=== PATIENT | female | born 1955 | race Caucasian/White ===

== ENCOUNTER 2019-07-20 14:04 | Inpatient (IN) | payer OTHER ==
[~2019-07-20] VITALS: Ht 170.2 cm; Wt 87.5 kg
[2019-07-20 14:18] VITALS: BP 151/78
[2019-07-20] MEDS ORDERED: OMEPRAZOLE 20 M20 M1 PO ×2 (15:00→15:03)
[2019-07-20] MEDS ORDERED: VISTARIL 25 MG25 M1 PO (15:02)
[2019-07-20] MEDS ORDERED: NAMENDA 10 MG T10 MG PO (15:02)
[2019-07-20] MEDS ORDERED: MEMANTINE HCL10 MG PO (15:04)
[2019-07-20] MEDS ORDERED: CHILDREN'S ALLER5 M1 PO (15:04)
[2019-07-20] MEDS ORDERED: NABUMETONE 500500 M1 PO (15:06)
[2019-07-20] MEDS ORDERED: MULTIVITAMINS1 EAC7 PO (15:07)
[2019-07-20] MEDS ORDERED: DESYREL150 MG PO (15:07)
[2019-07-20] MEDS ORDERED: VENLAFAXINE HC225 MG PO (15:07)
[2019-07-20] MEDS ORDERED: FLONASE 0.05%50 MCG NASAL (15:08)
[2019-07-20] MEDS ORDERED: FLONASE 0.05%50 MCG NARES (15:08)
[2019-07-20] MEDS ORDERED: PROAIR HFA8.5 GM INH (15:08)
[2019-07-20] MEDS ORDERED: VOLTAREN GEL 1100 G1 TOP (15:09)
[2019-07-20] MEDS ORDERED: NORVASC5 M1 PO (15:09)
[2019-07-20] MEDS ORDERED: CLONAZEPAM 0.50.5 M1 PO (15:10)
[2019-07-20 15:16] LABS: URINE BILIRUBIN NEGATIVE (Negative); URINE BLOOD NEGATIVE (Negative); URINE CLARITY CLEAR; URINE COLOR YELLOW; URINE GLUCOSE-RANDOM* NEGATIVE (Negative); URINE KETONES NEGATIVE (Negative); URINE LEUKOCYTES-REFLEX NEGATIVE (Negative); URINE NITRITE-REFLEX NEGATIVE (Negative); URINE PROTEIN (DIPSTICK) NEGATIVE (Negative); URINE SPECIFIC GRAVITY <= 1.005 (1.005-1.035); URINE UROBILINOGEN 0.2 E.U./dl (0.2-1.0)
[2019-07-20 15:18] LABS: ABSOLUTE NEUTROPHILS 2.9 thou/uL (1.4-8.2); BASOPHILS 0.1 % (0.0-2.0); HEMATOCRIT 42.1 % (37.0-47.0); HEMOGLOBIN 14.1 gm/dL (12.0-15.0); LYMPHOCYTES 27.5 % (24.0-44.0); MCH 30.8 pg (26.0-34.0); MCHC 33.5 g/dL (28.0-37.0); MCV 91.9 fL (80.0-100.0); MONOCYTES 9.4 % (1.0-8.0); PLATELET COUNT 253 thou/uL (150-400); RBC 4.58 mil/uL (4.20-5.00); RDW 13.1 % (10.5-14.5); WBC 4.6 thou/uL (4.0-11.0)
[2019-07-20 15:25] LABS: CALCIUM 9.3 mg/dL (8.5-10.1); CREATININE 0.8 mg/dL (0.6-1.0); POTASSIUM 3.7 mmol/L (3.5-5.1)
[2019-07-20 15:31] LABS: ALBUMIN 4.2 g/dL (3.4-5.0); TOTAL BILIRUBIN 0.3 mg/dL (<0.1-1.0)
[2019-07-20 17:28] VITALS: BP 138/92
[2019-07-20 18:04] VITALS: BP 148/75
--- NOTE | 2019-07-20 18:39 | NUR ---
PT. ARRIVED IN W/C FROM ER. PT. HERE FOR CONFUSION WITH DEMENTIA, INCREASED AGRESSION AND ANGER OVER THE PAST FEW WEEKS. SHE IS ORIENTED TIMES 4 AND WAS BROUGHT IN BY HER DAUGHTER IN LAW. SHE HAS BEEN VERY TEARFUL SINCE SHE HAS BEEN HERE STATING HER FAMILY IS MAKING HER LOOK BAD. SHE STATES SHE HAS BEEN GAINING WEIGHT OVER THE PAST FEW MONTHS AND HAS BEEN TRYING TO EAT LESS SO SHE COULD LOSE WEIGHT. SHE HAS A PMHX OF HTN, ANXIETY/DEPRESSION/INSOMNIA, ALLERGIES, CHRONIC JOINT PAIN, VERTIGO, RECURRENT PNEUMONIA, AND CHRONIC SINUSITIS. SHE HAS HAD A PAST HISTORY OF RT. CARPAL TUNNEL RELEASE 12/2007, HYSTERECTOMY 2008, RT. KNEE ARTHROSCOPY 2009, ROTATOR CUFF REPAIR, LEFT KNEE REPLACEMENT, LEFT KNEE MANIPULATION 2016, AND VENTRICULAR PERITONEAL SHUNT REPLACEMENT 2019. VITALS WERE STABLE. HER DAUGHTER IN LAW AND SON ARE HER DPOA. SHE DID STATE AT ONE POINT SHE HEARS VOICES AND SEES THINGS, BUT WHEN ASKED ABOUT THIS AGAIN, SHE DENIED IT.
[2019-07-20 20:30] VITALS: BP 156/93
[2019-07-20 20:40] VITALS: BP 156/93
--- NOTE | 2019-07-21 02:43 | NUR ---
PATIENT WAS GIVEN A BOXED LUNCH THIS EVENING AFTER COMING UP FROM ED. SHE ATE 100%. SHE HAS BEEN ASKING TO CALL AND TALK WITH HER SON WHO IS DPOA. I TOLD HER I NEEDED TO CALL HIM FOR SOME CONSENTS AND WOULD SEE IF HE WAS AVAILABLE TO TALK. WHEN I CALLED HE STATES THAT HE HAD JUST TALKED TO HER BY PHONE NOT TOO LONG AGO. PATIENT WAS BEING SEEN BY JASWANT ROBERTSON NP AT THE TIME. PATIENT CAME OUT AFTER SEEING FUNDS DEVELOPMENT DIRECTOR AND ASKED TO CALL. TOLD HER I HAD SPOKEN TO SON AND HE STATES HE HAD SPOKEN TO HER NOT TOO LONG BEFORE THAT AND WE COULD TRY THE NEXT DAY. SHE BECAME TEARY EYED AND SAID SHE JUST WANTED TO KNOW WHY SHE IS HERE. PT WENT BACK TO ROOM AND THIS NURSE WENT TO DO ASSESSMENT AND DISCUSS WITH HER WHY SHE WAS HERE. SHE ACCEPTED WHY SHE WAS HERE AND IS WILLING TO LET DR TRY AND FIND A WAY TO FIX HER MEDS SO SHE IS NOT SO ANGRY ALL THE TIME. SHE STAYED CALM AND DID NOT CRY. SHE SMILED AND THANKED ME FOR SPENDING TIME WITH HER. WELCOME PACKET GIVEN TO HER. PATIENT BROUGHT HER OWN DEPENDS IN AND WANTS TO USE THEM UNTIL THEY ARE GONE. PATIENT HAS BEEN SLEEPING SINCE 2229. BED IN LOW POSITION. CONTINUING TO MONITOR FOR ASSESSMENT OF STATUS AND SAFETY. IPAD AND CELLPHONE SENT TO SECURITY FOR SAFE KEEPING. PATIENT TOOK HER MEDS WHOLE WITHOUT ISSUE. PT STATES SHE HAD BM 07/19/19. WILL CONTINUE TO MONITOR.
--- NOTE | 2019-07-21 06:22 | NUR ---
PATIENT AWOKE THIS MORNING AND IS SITTING IN MAIN DINING ROOM. SHE HAS C/O OF HEADACHE AT A 5 OUT OF 10. WHEN I ASK HOW SHE IS FEELING THIS MORNING SHE CRIES SOFTLY AND SAYS SHE WANTS TO GO HOME AND SHE DOESN'T BELONG HERE. I LISTENED AND TRIED TO CONSOLE AND ENCOURAGE HER TO TALK TO THE DR AND LET HIM KNOW HER STORY AND WORK WITH THE TEAM THEY LOOK AT HER MEDS AND SEE WHERE THEY NEED TO BE ADJUSTED AT. TOLD HER TO TAKE ADVANTAGE OF THE GROUP SESSIONS AND THAT WE CAN ALL LEARN SOMETHING FROM THEM. PATIENT GIVEN TYLENOL 650MG PO AT 0615 FOR HEADACHE. PATIENT SITTING AT A TABLE WATCHING TV AT THIS TIME. PT WAS GIVEN NEW SOCKS WITH TREADS ON THEM TO WEAR AROUND UNIT. FALL TEACHING DONE WITH PATIENT EXPLAINING THE REASON SHE NEEDED TO TRADE OUT HER SOCKS FOR THESE. WILL CONTINUE TO MONITOR.
[2019-07-21 07:26] VITALS: BP 133/94
--- NOTE | 2019-07-21 11:32 | EKG ---
[facility] [place] [address] ELECTROCARDIOGRAM REPORT Name: KAYKAYGALLITO Room #: [facility] ADM IN M.R.#: [id number] Admission: 07/20/19 Attend Phys: Alexander Champagne DO Discharge: Date of : 57 Report #: [id number] THIS REPORT FOR: cc: FAM - Family physician unknown FAM - Family physician unknown Chadd Rashid MD ~ THIS REPORT FOR: //name// [facility] ED Test Date: 2019-07-20 Test Time: 16:00:02 Pat Name: GALLITO MCCRACKEN Department: Room: [facility] Gender: F Car Rental Manager: BRENDA : [id number] Requested By: Sixto Childers Order Number: [id number] MD: Chadd Rashid Measurements Intervals [place] Rate: 71 P: 52 NV: 159 QRS: 20 QRSD: 94 T: 17 QT: 380 QTc: 413 Interpretive Statements Sinus rhythm Probable left atrial enlargement Baseline wander in lead(s) V1 No previous ECG available for comparison Electronically Signed On 07-21-2019 11:31:15 CDT by Chadd Rashid [email or web address] <ELECTRONICALLY SIGNED> By: Chadd Rashid MD 07/21/19 1131 1600 1600 Chadd Rashid MD /EPI
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
[2019-07-21 19:56] VITALS: BP 126/87
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
--- NOTE | 2019-07-22 02:04 | NUR ---
PATIENT WAS UP IN DAYROOM WATCHING TV WHEN THIS NURSE CAME ON DUTY. PATIENT HAS BEEN CALM AND COOPERATIVE AND VERY PLEASANT. SHE HAS NOT BEEN TEARY THIS EVENING. WHEN I OFFERED HER A PRN ANTIANXIETY MED AT HS SHE REFUSED IT SAYING SHE FELT FINE AND DIDN'T FEEL SHE NEEDED IT. WE DISCUSSED HER DAY TODAY. SHE STATES SHE FELT BETTER TALKING WITH THE DOCTOR BUT HOPES SHE CAN GET HOME SOON. SHE HAS CONSULTS WITH OT AND CONSULT WITH DR WISDOM FOR THIS WEEK. SHE DENIES PAIN. SHE IS FORGETFUL. SHE TOLD DAY NURSE THAT SHE NEEDED A LAXATIVE BECAUSE SHE HADN'T HAD A BM IN SEVERAL DAYS AFTER TELLING ME THAT SHE HAD A BM ON 07/19/19. PATIENT HAS ACTIVE BOWEL SOUNDS AND HER ABDOMEN IS SOFT. SUGGESTED PRUNE JUICE IN THE MORNING FOR BREAKFAST. PATIENT HAS BEEN APPROPRIATE AND SMILING MORE WHEN TALKING THIS EVENING. SHE TOOK HER MEDS WHOLE WITH WATER. SHE DID HAVE AN HS SNACK. VSS. HEART REGULAR AND BILATERAL LUNGS CTA. A/0X3. DENIES SI/HI/AVH. BED IN LOW POSITON AND ROUNTINE ROUNDS TO ASSESS FOR SAFETY AND STATUS. PATIENT APPEARS COMFORTABLE AND IS SLEEPING AT THIS TIME. WILL CONTINUE TO MONITOR.
[2019-07-22 07:46] VITALS: BP 112/61
[2019-07-22 11:56] VITALS: BP 112/61
--- NOTE | 2019-07-22 12:03 | NUR ---
LITURGICAL MUSIC DIRECTOR met with this patient and another patient for a small non contact reminiscent group. Patient shared stories from camping trips she has taken. She becomes tearful at times when she speaks about her cat and dog and wanting to return home. Some hopelessness when she expresses limitations such as no longer driving.
[2019-07-22 19:30] VITALS: BP 147/88
--- NOTE | 2019-07-23 03:08 | NUR ---
PATIENT ASSESSED AND IS ALERT X 4. SKIN WARM AND DRY. RESP EVEN AND UNLABORED. UP WALKING INDEPENDENTLY. TAKEN ALL MEDS WELL. IS STEADY ON HER FEET. HAS BEEN ROOM SERVICE FOOD SERVER[PERATIVE THIS SHIFT SO FAR. NO SI/HI/AH/VH. NOTED. NO DELUSIONAL BEHAVIOR NOTED. VISTERIL GIVEN ALONG HER HS MEDS. " STOMACH ALITTLE CRAMPY" STATED BY PATIENT. HAD A LARGE BM TODAY. TO BED AND HAS BEEN SLEEPING EVER SINCE. VS STABLE. HAS BEEN PLESANT THIS SHIFT SO FAR. DENIES ANY PAIN. CONT PLAN OF CARE. LUNGS CTA. VOIDING WELL.
[2019-07-23 08:44] VITALS: BP 143/84
--- NOTE | 2019-07-23 12:57 | NUR ---
MARCELINO contacted Neena and provided an update on pt including that a neuropsych test has been ordered. Neena was in agreement with that plan. SW Team will continue to follow pt during her stay on this unit.
--- NOTE | 2019-07-23 18:03 | NUR ---
UAL IN HALLS AND DINNING ROOM, STEADY GAIT. VISITS WITH OTHER PATIENTS WITHOUT ANY SIGNS OF AGGRESSION OR AGITATION. AAOX4. GOOD APPETITE FOR MEALS. TOOK TYLENOL THIS SHIFT FOR C/O HEADACHE, GOOD RELIEF. NEUROPSYCH TESTED COMPLETED PER DR. WISDOM.
[2019-07-23 19:27] VITALS: BP 138/78
[2019-07-23 21:22] VITALS: BP 138/78
--- NOTE | 2019-07-24 04:20 | NUR ---
PATIENT UP IN THE DINING ROOM TONIGHT UNTIL BEDTIME. PATIENT WAS CALM AND COOPERATIVE. SHE DID BECOME ANXIOUS AT BEDTIME THINKING THAT SHE WOULDN'T BE ABLE TO SLEEP. PATIENT GIVEN HER HS TRAZADONE AND THEN A LITTLE LATER SHE WAS GIVEN HYDROXZINE 25MG PRN D/T UNABLE TO SLEEP AND WAS WORRYING ABOUT IT. PATIENT HAS BEEN SLEEPING SOUNDLY SINCE. PATIENT DID HAVE A BM TONIGHT BEFORE SHE WENT TO BED. PATIENT DENIES PAIN. DENIES SI/HI/AVH. PATIENT STATES SHE HOPES TO GO HOME BY SUNDAY. SHE TOOK HER HS MEDS WHOLE WITH WATER. VSS. BED IN LOW POSITION. ROUTINE ROUNDS TO ASSESS FOR STATUS AND SAFETY OF PATIENT. CONTINUING TO MONITOR. PHARMACIST CALLED FROM LAB AND STATES THAT SHE IS CHANGING PATIENT'S OMEPRAZOLE OVER TO PANTROPAZOLE. CONTINUING TO MONITOR.
[2019-07-24 09:08] VITALS: BP 152/82
[2019-07-24 09:18] VITALS: BP 152/97
--- NOTE | 2019-07-24 10:14 | NUR ---
1010 RESUMMED CARE FROM OVERNIGHT SHIFT THIS AM, PATIENT IN DAY ROOM WAITING FOR BREAKFAST. PATIENT STATED TO ME THIS AM THAT SHE SHOULD NOT BE HERE, HER CAREGIVER PUT HERE FOR A MISUNDERSTANDING. PATIENTS ABDOMEN SOFT ROUND BOWEL SOUNDS PRESENT LUNGS CLEAR. PATIENT VERY PLEASAT BUT WANTS TO LEAVE HERE, PATIENT DENIES SI/HI/AH/VH AT PRESENT. PATIENTS GOAL IS TO BE COOPERATIVE SO SHE CAN GO HOME. WILL CONTINUE TO MONITOR PATIENT FOR BEHAVIORS AND SAFETY.
[2019-07-24 21:16] VITALS: BP 152/85
--- NOTE | 2019-07-25 02:19 | NUR ---
ASSSUMED CARE OF PT AT 1900HRS. PT WAS CALM AND COOPERATIVE THIS SHIFT. ASSESSMENT CHARTED. 2+ BLE EDEMA NOTED AND PT REPORTS THAT IT IS NORMAL FOR HER. PT DENIED PAIN, NAUSEA, SI/HI/AH/VH. PT WAS ABLE TAKE HS MEDS WHOLE WITH WATER. PT WAS ABLE TO SLEEP PART OF THE SHIFT. VSS AND NO S/S OF ACUTE DISTRESS. WILL CONTINUE TO MONITOR.
[2019-07-25 08:05] VITALS: BP 125/95
--- NOTE | 2019-07-25 10:00 | NUR ---
0700 ASSUMED CARE OF PATIENT, PATIENT SITTING IN CHAIR IN DAYROOM. DENIED NEEDS AT THAT TIME. PATIENT UPSET WHEN STAFF ASKED HER NOT TO GET INTO REFRIGERATOR THIS AM. PATIENT EATING BREAKFAST IN DAYROOM. MEDICATION TAKEN WHOLE WITHOUT DIFFICULTY. WILL CONTINUE TO OBSERVE
--- NOTE | 2019-07-25 11:56 | NUR ---
RT progress note- Lorena is actively participating in 1;1 and small groups at this time. She is ocassionally tearful d/t situation, but is pleasant and socially interactive. She has participated in putting a puzzle together over the last few days and especially enjoys music.
--- NOTE | 2019-07-25 15:46 | NUR ---
MARCELINO provided the results of the neuropsych report to Neena; pt needs 24 hour support and supervision. She said she would prefer pt to come to her home with staffing, but she does not think that will happen. She sent MARCELINO a list of providers she would like referrals sent to . MARCELINO sent referrals to Laurent Huynh, Abdiel ESPINO, and Rohit. MARCELINO team will continue to follow pt during his stay on this unit.
[2019-07-25 19:40] VITALS: BP 152/91
--- NOTE | 2019-07-26 00:29 | NUR ---
Care assumed of patient at 1915: Patient seated in dayroom, watching TV, at start of shift. Interacting with peer. Presents with flat affect, appears depressed. Tearful at times. Patient alert and oriented to person only. Patient confused and forgetful. Patient did ask for "clues" to be able to answer orientation questions. Patient then looked at the activity board, squinted eyes, and read the current date. When re-oriented, patient stated "oh, I knew that". Patient irritable at times with other peers being loud. Patient frustrated that she couldn't hear the TV show. Offered alternate activities that patient could complete in her room. Patient denied and stated she didn't want to miss her show. Patient denies anxiety and depression. Did state, "I just want to go home". Denies SI/HI/AH/VH. Patient ate 100% HS snack. Patient took HS medication whole without difficulty. Patient was able to retire to bed at a reasonable hour. Patient had some difficulty getting to sleep due to noise disruptions on the unit but was able to fall asleep and is resting quietly at this time.
--- NOTE | 2019-07-26 08:06 | NUR ---
0700 ASSUMNED CARE OF PATIENT, PATIENT SITTING AT TABLE IN DAYROOM. PATIENT TEARFUL AND STATES "I DID NOT GET MUCH SLEEP, MEN KEPT COMING INTO THE ROOM TO GET OUR THINGS". PATIENT SAYS TO MUCH NOISE AND THATS WHY SHE HAS SOME ANXIETY. PATIENT DRINKING COFFEE AT THIS TIME BUT DENIES OTHER NEEDS. PATIENTS GOAL FOR TODAY IS TO GO HOME. WILL CONTINUE TO OBSERVE
--- NOTE | 2019-07-26 09:12 | NUR ---
SENOKOT GIVEN PER PATIENT REUEST. PATIENT STATES HAVING CONSTIPATION AND NOT HAVING A BM FOR A FEW DAYS. WILL CONTINUE TO OBSERVE.
--- NOTE | 2019-07-26 14:03 | NUR ---
2970 PATIENT TO DESK TO RETURN CORDLESS PHONE, PATIENT WITH TEARS IN EYES. COMPUTER ENGINEER ASKS PATIENT IF SHE NEEDS TO TALK AND PATIENT SAYS YES. VISITED WITH PATIENT IN HER ROOM, PATIENT UPSET BECAUSE ANOTHER PATIENT CALLING HER A LYER. AFTER TALKING A BIT PATIENT WANTED TO TALK TO MARCELINO. eGneva WAS NOTIFIED AND TO ROOM TO SPEAK WITH PATIENT. WILL CONTINUE TO OBSERVE.
--- NOTE | 2019-07-26 15:28 | NUR ---
C/O RUTH, TYLENOL 650MG PO GIVEN. RATES PAIN A 4 ON NUMERIC PAIN SCALE.
--- NOTE | 2019-07-26 16:56 | NUR ---
SW had a 1 on 1 with Pt at Pt's request. PT was upset after another Pt accused her of lying. Pt was also concerned about going to a detention. Pt was tearful and explained the reason she dosent want to goto a long term. Sw offered emotional support and encouraged Pt to speak to her ricci concerning the decision. SW also encouraged Pt to see the positives of the situation. Pt was able to calm and wanted to lay down before dinner.
[2019-07-26 20:04] VITALS: BP 152/84
--- NOTE | 2019-07-26 21:48 | NUR ---
Care assumed of patient at 1915: Patient seated in dayroom at start of shift. Patient observed interacting with other peers and staff. Presents with flat affect, appears depressed. Patient calm, pleasant and cooperative. Alert and oriented to person and place, disoriented to current time. Patient was able to remember to look at the activity board to be able to read the current date. Patient was not or did not want to discuss what had occurred leading up to her admission. Patient denied feeling depressed. Patient did report having anxiety rated 5/10. Patient indicated that anxiety was due to wanting to be able to go home. Patient assisted with deep breaths to help soothe her. Patient reported that it was helpful. Patient denies SI/HI/AH/VH. No delusional or paranoia behaviors observed. Patient denies pain or discomfort. No aggression shown. Patient took HS medication whole without difficulty. Ate 100% HS snack. Patient was able to retire to bed and is resting quietly at this time.
[2019-07-27 07:43] VITALS: BP 141/87
--- NOTE | 2019-07-27 09:40 | NUR ---
0700 ASSUMED CARE OF PATIENT, PATIENT IN ROOM AT THAT TIME. PATIENT TO DAYROOM FOR BREAKFAST C/O RUTH RATING A 5 ON NUMERIC PAIN SCALE. PATIENT SITTING AT TABLE WITH ANOTHER PATIENT COMMUNICATING WELL. DENIES NEEDS AT THAT TIME.
[2019-07-27 19:52] VITALS: BP 148/81
[2019-07-27 22:59] VITALS: BP 148/81
--- NOTE | 2019-07-28 00:17 | NUR ---
PATIENT WAS UP IN DAYROOM WHEN I CAME ON SHIFT AT 1900. SHE WAS UP WALKING THE HALLS TONIGHT TOO. SHE WAS WITH C/O OF RIGHT SIDE BACK PAIN 5/10. HER MUSCLES WERE TENSE FROM HER NECK DOWN HER BACK ON RIGHT SIDE. SHE STATES SHE GETS STRESSED LISTENING TO ALL THE YELLING AND BEHAVIORS OF OTHER PATIENTS. SHE SAYS THE CONSTANT ACTIVITY WITH OTHER PATIENT'S BEHAVIORS IS OVERWHELMING. SHE HAS ONE PT THAT HAS BEFRIENDED HER AND THINKS THAT THEY WORK TOGETHER. THE OTHER PT IS CONFUSED AND DISORIENTED AND DELUSIONAL AND YELLED AT PATIENT DURING THE DAY WHEN SHE TRIED TO ORIENTATE HER TO PRESENT TIME. THIS UPSET AND STRESSED THIS PATIENT CAUSING HER TO CRY. TYLENOL 650MG AND HYDROXIZINE 25MG WELL HER MUSCLE SPASM CREAM APPLIED AT BEDTIME. THIS HAS RELIEVED HER PAIN AND SHE IS SLEEPING COMFORTABLY. HER VSS. SHE IS A/0X4 AND FORGETFUL. SHE IS HOPING TO GO HOME SOON. SHE DENIES SI/HI/AVH. SHE HAS BEEN APPROPRIATE TONIGHT AND NO CRYING. ROUTINE ROUNDING FOR ASSESSMENT OF STATUS AND SAFETY. BED IN LOW POSITION.
[2019-07-28 08:44] VITALS: BP 138/113
[2019-07-28] MEDS ORDERED: TRAZODONE HCL50 MG PO (12:42)
[2019-07-28] MEDS ORDERED: VENLAFAXINE HC225 MG PO (12:43)
[2019-07-28] MEDS ORDERED: HYDROXYZINE HCL25 M2 PO (12:43)
[2019-07-28] MEDS ORDERED: SENNA-TIME S T1 EACH PO (12:44)
[2019-07-28] MEDS ORDERED: MEMANTINE HCL10 MG PO (12:44)
[2019-07-28 12:51] VITALS: BP 138/113
--- NOTE | 2019-07-28 13:30 | NUR ---
MARCELINO and Dr. Champagne met with patient's dtr ai, Neena [phone] to discuss discharge plan. Dtr-ai reports patient will discharge home today with the help of 4 family members as they wait approval from patient's [facility] Care plan which takes approximately one month, per dtr ai. Upon approval from her [facility] care plan, patient will transfer to an Assisted Living facility. MARCELINO scheduled an appt for patient to follow up with [facility] [phone] on 07/30/19 @9:30am via telehealth. Kiet (Son/DPOA) was notified.
[2019-07-28 14:34] VITALS: BP 138/113
--- NOTE | 2019-07-28 15:04 | NUR ---
MARCELINO followed up with [facility]) [phone]. They are able to accept but have financial questions. [facility] [phone] is not accepting new admissions at this time. [facility] [phone] declined stating they do not have a behavioral unit and are unable to meet her needs.
--- NOTE | 2019-07-28 16:03 | NUR ---
Assumed patient care at 0715. Patient displayed no inappropriate behaviors during this shift. She voiced no threats and/or dangerous behaviors towards others; voiced no suicidal ideations. Patient has been compliant with her medications. She was Discharged today at 1515. She left with her E[employer]fy[employer], all belongings and Discharge paperwork.
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
== END 2019-07-28 15:50 | disposition home or self-care (01) | DRG 884 ==
LOC: ER 14:04 → EROBS 16:49 → SBH 16:49
PROVIDERS: Emergency Medicine; ADMIT Psychiatry & Neurology Psychiatry
DX: F01.51 Vascular dementia, unspecified severity, with behavioral disturbance (principal); R45.851 Suicidal ideations; F41.9 Anxiety disorder, unspecified; F32.9 Major depressive disorder, single episode, unspecified; I10 Essential (primary) hypertension; Z79.899 Other long term (current) drug therapy; Z88.8 Allergy status to other drugs, medicaments and biological substances; Z88.0 Allergy status to penicillin; Z88.2 Allergy status to sulfonamides; Z91.040 Latex allergy status
CPT/HCPCS: 10880

== ENCOUNTER 2020-02-09 13:44 | Emergency (ER) | payer OTHER ==
[~2020-02-09] VITALS: Ht 160 cm; Wt 90.7 kg
[~2020-02-09 13:44] MED LIST: CHILDREN'S ALLER5 M1 PO; CLONAZEPAM 0.50.5 M1 PO; DESYREL150 MG PO; FLONASE 0.05%50 MCG NARES; FLONASE 0.05%50 MCG NASAL; HYDROXYZINE HCL25 M2 PO; MEMANTINE HCL10 MG PO; MULTIVITAMINS1 EAC7 PO; NABUMETONE 500500 M1 PO; NAMENDA 10 MG T10 MG PO; NORVASC5 M1 PO; OMEPRAZOLE 20 M20 M1 PO; PROAIR HFA8.5 GM INH; SENNA-TIME S T1 EACH PO; TRAZODONE HCL50 MG PO; VENLAFAXINE HC225 MG PO; VISTARIL 25 MG25 M1 PO; VOLTAREN GEL 1100 G1 TOP
[2020-02-09 13:59] VITALS: BP 171/85
[2020-02-09 15:06] LABS: URINE BILIRUBIN NEGATIVE (Negative); URINE BLOOD NEGATIVE (Negative); URINE CLARITY CLEAR; URINE COLOR YELLOW; URINE GLUCOSE-RANDOM* NEGATIVE (Negative); URINE KETONES NEGATIVE (Negative); URINE LEUKOCYTES-REFLEX NEGATIVE (Negative); URINE NITRITE-REFLEX NEGATIVE (Negative); URINE PROTEIN (DIPSTICK) NEGATIVE (Negative); URINE UROBILINOGEN 0.2 E.U./dl (0.2-1.0)
[2020-02-09 15:35] LABS: ABSOLUTE NEUTROPHILS 5.8 thou/uL (1.4-8.2); BASOPHILS 0.5 % (0.0-2.0); HEMATOCRIT 44.9 % (37.0-47.0); HEMOGLOBIN 15.1 gm/dL (12.0-15.0); LYMPHOCYTES 17.1 % (24.0-44.0); MCH 30.5 pg (26.0-34.0); MCHC 33.5 g/dL (28.0-37.0); MCV 90.9 fL (80.0-100.0); MONOCYTES 9.2 % (1.0-8.0); PLATELET COUNT 298 thou/uL (150-400); POLYS 73.2 % (36.0-66.0); RBC 4.94 mil/uL (4.20-5.00); RDW 12.9 % (10.5-14.5); WBC 7.9 thou/uL (4.0-11.0)
[2020-02-09 15:39] LABS: AMP/METHAMP Negative (Negative); BARBITURATES Negative (Negative); BENZODIAZEPINES Negative (Negative); COCAINE Negative (Negative); METHADONE Negative (Negative); OPIATES Negative (Negative); PCP Negative (Negative)
[2020-02-09] MEDS ORDERED: ARICEPT10 M1 PO (15:43)
[2020-02-09] MEDS ORDERED: FLONASE 0.05%50 MCG NARES (15:44)
[2020-02-09] MEDS ORDERED: NORVASC5 M1 PO (15:44)
[2020-02-09] MEDS ORDERED: SEROQUEL 50 MG50 M1 PO (15:44)
[2020-02-09] MEDS ORDERED: VOLTAREN GEL 1100 G1 TOP (15:44)
[2020-02-09 15:45] LABS: CALCIUM 9.3 mg/dL (8.5-10.1); CREATININE 1.1 mg/dL (0.6-1.0); POTASSIUM 4.2 mmol/L (3.5-5.1)
[2020-02-09 15:51] LABS: ALBUMIN 4.5 g/dL (3.4-5.0); TOTAL BILIRUBIN 0.4 mg/dL (0.2-1.0); TOTAL PROTEIN 8.9 g/dL (6.4-8.2)
--- NOTE | 2020-02-09 16:05 | EKG ---
[facility] [place] [address] ELECTROCARDIOGRAM REPORT Name: GALLITO MCCRACKEN Room #: REG [facility]#: [id number] Admission: 02/09/20 Attend Phys: Discharge: Date of : 57 Report #: [id number] THIS REPORT FOR: cc: FAM - Family physician unknown FAM - Family physician unknown Jonnie Vizcaino MD [facility] ~ THIS REPORT FOR: //name// [facility] ED Test Date: 2020-02-09 Test Time: 16:01:38 Pat Name: GALLITO MCCRACKEN Department: Room: Gender: F Banking Paralegal: Jo Ann : 1955 Requested By: Trino Horan Order Number: [id number] MD: Jonnie Vizcaino Measurements Intervals [place] Rate: 67 P: 3 CT: 155 QRS: 15 QRSD: 86 T: 27 QT: 397 QTc: 419 Interpretive Statements Sinus rhythm Normal tracing Compared to ECG 07/20/2019 16:00:02 No significant changes Electronically Signed On 02-09-2020 16:05:43 [employer]OP LABOR[employer] by Jonnie Vizcaino [email or web address] <ELECTRONICALLY SIGNED> By: Jonnie Vizcaino MD, [facility] 02/09/20 1605 1601 00 Jonnie Vizcaino MD, [facility] /EPI
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
[2020-02-10 07:19] VITALS: BP 154/90
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
== END 2020-02-10 07:09 ==
LOC: ER 13:44 → EROBS 16:43 → ER 16:43 → EROBS 16:47 → ER 02-10 07:09 → EROBS 02-10 07:10 → SBH 02-10 07:10
PROVIDERS: Emergency Medicine
DX: F91.1 Conduct disorder, childhood-onset type (principal); F03.90 Unspecified dementia, unspecified severity, without behavioral disturbance, psychotic disturbance, mood disturbance, and anxiety; I10 Essential (primary) hypertension; Z90.710 Acquired absence of both cervix and uterus; Z79.899 Other long term (current) drug therapy; Z88.2 Allergy status to sulfonamides; Z88.0 Allergy status to penicillin; Z88.8 Allergy status to other drugs, medicaments and biological substances; Z91.040 Latex allergy status; Z20.828 Contact with and (suspected) exposure to other viral communicable diseases

== ENCOUNTER 2020-02-10 03:13 | Inpatient (IN) | payer OTHER ==
[~2020-02-10] VITALS: Ht 162.6 cm; Wt 87.2 kg
[~2020-02-10 03:13] MED LIST changes: +ARICEPT10 M1 PO; +SEROQUEL 50 MG50 M1 PO
[2020-02-10 07:54] VITALS: BP 154/90
--- NOTE | 2020-02-10 08:59 | NUR ---
64yr old patient admitted to room 26B per w/c with er staff at 0730 Ambulatory to bed. Orintated to room and bed controls. Pt lets staff have her cell phone to be locked up.Speech is clear. affect is flat/sad.Pt stated she lives at home with her grandson and his girlfriend and "well, I just dont want to talk about it right now".Denies ETOH/drug use. Admits to hx of left knee replacement, in last few years.Pt states she has fallen at home before she had shunt placed. Pt is A/Ox4.
[2020-02-10 10:17] VITALS: BP 154/90
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
[2020-02-10 19:37] VITALS: BP 145/93
--- NOTE | 2020-02-11 03:41 | NUR ---
02-10-20 CARE TRANSFERRED 1899 OBSERVED PT SITTING IN DAY ROOM SOCIALIZLING WITH OTHERS. 194 PT AAOX3, VSS, RR EVEN AND NONLABORED ON RA. PT REPORTS L. SHOULDER PAIN AND SCORES 4 ON 0-10 SCALE. PT DENIES SI/HI; PT PRESENTS FRUSTRATED, ANXIOUS BUT REMAINS CALM AND COOPERATIVE THROUGHOUT NURSING ASSESSMENT. DURING MEDICATION ADMIN PT HAD NO DIFFICULTIES AND PT REPORTED THIS AFTERNOON I GOT REALLY DIZZY AND WAS NOT SURE WHY, PT DENIES THAT THIS HAS EVER HAPPEN BEFORE. WHEN ASKED ABOUT SWEATING, PT DENIES. PT AGREED TO REPORT ANY DIZZY FEELINGS IMMEDIATELY TO NURSING. NO S/S OF ACUTE DISTRESS NOTE, PT WILL CONTINUE TO BE MONITOR PER [facility] PROTOCOL.
[2020-02-11 07:46] VITALS: BP 129/87
--- NOTE | 2020-02-11 09:24 | NUR ---
aCCEPTED CARE OF PATIENT FROM 7P-7A SHIFT.PATIENT IS HERE WITH DEMENTIA WITH AGGITATION.PATIENT IS UP IN DAYROOM,DRESSED AND EATS 100% OF BREAKFAST. tAKES MEDS WHOLE WITHOUT DIFFICULTY. ATTENDS GROUPS TODAY. MAINTAINS EYE CONTACT WHEN TALKING AND IS PLEASANT THIS AM. VISITS WITH DR GRANT.PATIENT DRESSES SELF AND DOES ORAL CARE. IS A FULL CODE AND IS ALLERGIC TO HYDROXIZINE,BUSPIRONE, LATEX, AND PCN, SULFA.
[2020-02-11 14:32] VITALS: BP 129/87
[2020-02-11 14:34] VITALS: BP 129/87
[2020-02-11 19:57] VITALS: BP 170/93
--- NOTE | 2020-02-12 04:15 | NUR ---
02-11-20 CARE TRANSFERRED 1900 OBSERVED PT SITTING IN DAY ROOM WATCHING TV. 1999 PT AAOX3, VSS, RR EVEN AND NONLABORED ON RA, PT DENIES PAIN AND SI/HI. PT PRESENTS TEARFUL OVER LIVING ARRANGEMENT AND REPORTS FEELING ANXIOUS. DURING MEDICATION PT HAD NO DIFFICULTIES. LATER ASSISTED PT WITH BED ADJUSTMENT FOR COMFORT. ZERO S/S OF ACUTE DISTRESS, PT WILL CONTINUE TO BE MONITOR PER [facility] PROTOCOL.
[2020-02-12 07:37] VITALS: BP 144/84
[2020-02-12 09:29] VITALS: BP 144/89
--- NOTE | 2020-02-12 10:22 | NUR ---
1020 RESUMMED CARE FROM OVERNIGHT SHIFT THIS AM, PATIENT IN DAY ROOM CALM QUIET. PATIENT ATE BREAKFAST TOOK MEDICATION WITHOUT INCIDENCE, PATIENT ORIENTED TIMES 3. PATIENT DENIES SI/HI/AH/VH AT PRESENT PATIENTS ABDOMEN SOFT ROUND. BOWEL SOUNDS PRESENT LUNGS CLEAR PATIENT HAS NOT DISPLAYED ANY BEHAVIORS. PATIENT STATES SHE HAS SOME ANXIETY PATIENT SPOKE WITH SON THIS MORNING. WILL CONTINUE TO MONITOR FOR SAFETY AND BEHAVIORS.
--- NOTE | 2020-02-12 12:02 | NUR ---
MARCELINO sent referrals for pt to Dayo ESPINO, Dayo BRADSHAW, Praneeth Dorado, and Brandyn Davila. SW team continue to follow pt during her stay on this unit.
[2020-02-12 19:00] VITALS: BP 134/82
--- NOTE | 2020-02-12 20:45 | NUR ---
Care assumed of patient at 1915: Patient seated in dayroom, watching movie at start of shift. Interacting well with staff and peers. Alert and oriented x3, confused on current situation. Forgetful at times. Denies SI/HI/AH/VH. Denies anxiety and depression. Reports pain rated 4/10 to bilateral knees. Topical cream and PRN Tylenol provided. Patient took HS medication whole without difficulty. Ate 100% HS snack. No agitation or aggression observed. Patient calm, pleasant, cooperative and enjoyable to converse with.
[2020-02-13 09:23] VITALS: BP 138/98
--- NOTE | 2020-02-13 17:03 | NUR ---
PATIENT CARE ASSUME AT 0700 - ALERT AND ORIENTED X 4. MAKES NEEDS KNOWN. UPSET WITH HOME SITUATION AND VOICED IT TO STAFF. STATES DOES NOT WANT TO GO TO ASSISTED LIVING. STATED HAD FOUR LOOSE STOOL MOVEMENTS AND FEELS DUE TO BEING DISTRAUGHT AND UPSET. MOOD DEPRESSED AND AFFECT BLUNTED. GOOD APPETITE - COMPLIANT WITH MEDICATIONS - AMBULATES INDEPENDENTLY - DENIES S/I OR H/I - NO AGGRESSION OR ANGER OBSERVED. DISATISIFACTION EVIDENT WITH FAMILY MEMBERS VOICED REPEATEDLY.
[2020-02-13 19:07] VITALS: BP 140/81
--- NOTE | 2020-02-14 05:10 | NUR ---
Assumed care of pt @ 1900. Pt calm et cooperative with pleasant demeanor this shift. Took medications whole without difficulty. Ambulates the halls ad percy with steady gait. VSWNL. Health assessment with no abnormalities noted at present time. Denies SI/HI/AVH at present time. Socialized with peers in dayroom until HS. Currently resting in bed with eyes closed. Will continue to monitor per unit protocol.
[2020-02-14 08:00] VITALS: BP 148/86
[2020-02-14 10:30] VITALS: BP 130/70
--- NOTE | 2020-02-14 11:28 | NUR ---
BP ON MACHINE ELEVATED AT 170/100-MANUAL RECHECK 148/86-COMPLIENT WITH TAKING PO BP MEDS AND BP AT 1030 130/72. COOPERATIVE. PLEASANT. DOES REPORT CHRONIC KNEE PAIN BILAT BUT STATES "ITS NOT TO BAD TODAY AND REFUSES OFFERS OF PRN TYLENOL. GAIT STEADY WITHOUT ASSISTIVE DEVICES. APPETITE GOOD. ATTENDING GROUPS. GAIT STEADY WITHOUT ASSISTIVE DEVICES. DESCRIBES MOOD "NERVOUS-ITS ALL THIS YELLING IT MAKES ME NERVOUS" IS SOCIAL WITH PEERS AND ATTEMPS TO RELAY ALL OF THEIR COMPLAINTS TO STAFF.
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
[2020-02-14 20:18] VITALS: BP 137/89
--- NOTE | 2020-02-15 05:17 | NUR ---
Assumed care of pt @ 1900. Pt calm et cooperative with pleasant demeanor this shift. Took medications whole without difficulty. Ambulates the halls ad percy with steady gait. Socialized with peers in dayroom until HS. VSWNL. Health assessment with no abnormalities noted at present time. Denies SI/HI/AVH at present time. Currently resting in bed with eyes closed. Will continue to monitor per unit protocol.
--- NOTE | 2020-02-15 08:34 | NUR ---
PT SITTING AT DINING ROOM EATING BREAKFAST. PT DENIES ANY PAIN. PT UP AD SO WITHOUT ANY ASSISTIVE DEVICES. PT ALERT AND ORIENTED TO PERSON, MONTH AND PLACE. PT TOOK MEDS WHOLE WITHOUT ANY ISSUES.
[2020-02-15 08:43] VITALS: BP 142/83
[2020-02-15 10:00] VITALS: BP 142/83
[2020-02-15 19:21] VITALS: BP 135/93
--- NOTE | 2020-02-16 02:00 | NUR ---
02-15-20 CARE TRANSFERRED 1899 OBSERVED PT SITTING IN DAY ROOM SOCIALIZING WITH OTHERS. 1950 PT AAOX4, VSS, RR EVEN AND NONLABORED ON RA, PT DENIES ANY PAIN AND SI/HI. PT PRESENTS PLEASANT, CALM AND COOPERATIVE BUT EXPRESS FEELING A LITTLE ANXIOUS OVER NEW ENVIRONMENT AND WANTING TO SELL HOUSE. PT EXPRESSED OPTIMISION ABOUT TOMORROW. DURING MEDICATION ADMIN PT HAD NO DIFFICULTIES SWALLOWING MEDICATION WHOLE WITH WATER. OBSERVED PT EASILY SOCIALIZING WITH OTHER RESIDENTS WHERE THEY REACHED A DECISION ON WHAT TO WATCH. ZERO S/S OF ACUTE DISTRESS NOTED, PT WILL CONTINUE TO BE MONITOR PER [facility] PROTOCOL.
[2020-02-16] MEDS ORDERED: DEPAKOTE500 MG PO (10:50)
[2020-02-16] MEDS ORDERED: TRAZODONE HCL100 MG PO (10:51)
[2020-02-16] MEDS ORDERED: PROTONIX 20 MG20 M1 PO (10:53)
[2020-02-16 12:59] VITALS: BP 143/85
--- NOTE | 2020-02-16 13:19 | NUR ---
1300 RESUMMED CARE FROM OVERNIGHT SHIFT THIS AM, PATIENT SITTING IN DAY ROOM TALKING WITH OTHER PATIENTS. PATIENT ORIENTED TIMES 4 CALM COOPERATIVE PATIENT DENIES SI/HI/AH/VH AT PRESENT. PATIENTS ABDOMEN SOFT ROUND BOWEL SOUNDS PRESENT LUNGS CLEAR. PATIENT VERY PLEASANT SHE HAD A CHEST XRAY FOR PLACEMENT PURPOSES. HER COVID AND CHEST XRAY RESULTS FAXED TO [facility]. PATIENT DISCHARGED TO NEW PLACEMENT WITH BELONGINGS AND DISCHARGE INFORMATION.
== END 2020-02-16 13:30 | disposition home or self-care (01) | DRG 884 ==
LOC: SBH
PROVIDERS: ADMIT Psychiatry & Neurology Psychiatry; ATTEND Psychiatry & Neurology Psychiatry
DX: F01.51 Vascular dementia, unspecified severity, with behavioral disturbance (principal); F32.9 Major depressive disorder, single episode, unspecified; I10 Essential (primary) hypertension; F41.9 Anxiety disorder, unspecified; R19.7 Diarrhea, unspecified; Z20.828 Contact with and (suspected) exposure to other viral communicable diseases
CPT/HCPCS: 10880